=== PATIENT | male | born 1990 | race Caucasian/White ===

== ENCOUNTER 2017-04-19 13:56 | Emergency (ER) | payer OTHER ==
[2017-04-19] MEDS ORDERED: Aspirin Low Dose CHEW TAB* 81 MG PO ONE (13:58)
[2017-04-19 14:43] LABS: Hematocrit 47 % (42-52); Hemoglobin 16.3 g/dl (14.0-18.0); Mean Corpuscular HGB Conc 35 g/dl (31-36); Mean Corpuscular Hemoglobin 31 pg (27-31); Mean Corpuscular Volume 89 fL (80-94); Mean Platelet Volume 8 um3 (7.4-10.4); Red Blood Count 5.22 10^6/ul (4.0-5.4); Red Cell Distribution Width 13 % (10.5-15); White Blood Count 8.6 10^3/ul (3.5-10.8)
--- NOTE | 2017-04-19 14:45 | RAD ---
HISTORY: Chest pain COMPARISONS: October 11, 2010 VIEWS: 1: frontal portable view of the chest at 2:10 PM FINDINGS: LINES AND TUBES: None. CARDIOMEDIASTINAL SILHOUETTE: The cardiomediastinal silhouette is normal for portable technique. PLEURA: The costophrenic angles are sharp. No pleural abnormalities are noted. LUNG PARENCHYMA: The lungs are clear. ABDOMEN: The upper abdomen is clear. There is no subphrenic gas. BONES AND SOFT TISSUES: No bone or soft tissue abnormalities are noted. IMPRESSION: NO ACTIVE CARDIOPULMONARY DISEASE.
[2017-04-19 14:57] LABS: Albumin 4.5 g/dL (3.2-5.2); BUN/Creatinine Ratio 8.9 (8-20); EGFR African American 150.2 (>60); EGFR Non-African American 116.8 (>60); Globulin 3.2 g/dL (2-4); Potassium 3.9 mmol/L (3.5-5.0); Total Bilirubin 0.8 mg/dL (0.2-1.0); Total Protein 7.7 g/dL (6.4-8.9)
--- NOTE | 2017-04-19 15:28 | ED ---
HPI Chest Pain - HPI Summary HPI Summary: Patient presents to the ED with CC of chest pain which began suddenly a few hours prior to arrival over the left anterior chest wall and radiates to the scapula on the ipsilateral side. Hx of arrhythmia a few years ago which had resolved by the time he arrived to the ED. Patient is overweight with history of high blood pressure. He states however he has controlled it with diet and drinking more water. No HTN noted on VS today on arrival. Denies other personal cardiac history. Denies SOB. Denies family history of cardiac issues. Denies traveling, smoking or calf pain. Denies worsening pain with movement and pain is not resolved with rest. The pain began suddenly and currently states the pain is a 2/10 and dull achy. Improved since onset which is states was 8/10. Denies visual changes. Denies KASPER or other symptoms. He takes no medications and states he is otherwise healthy. Denies recent illness or sick contacts. - History of Current Complaint Chief Complaint: EDChestPainROMI Time Seen by Provider: 04/19/17 13:58 Hx Obtained From: Patient Timing: Constant Initial Severity: Mild Current Severity: Mild Pain Intensity: 4 Pain Scale Used: 0-10 Numeric Chest Pain Location: Left Anterior Chest Pain Radiates: Yes Chest Pain Radiates To:: Back, Shoulder Character: Dull/Aching Aggravating Factor(s): Nothing Alleviating Factor(s): Nothing Associated Signs and Symptoms: Positive: Negative - Risk Factors Pulmonary Embolism Risk Factors: Negative TAD Risk Factors: Negative - Allergy/Home Medications Allergies/Adverse Reactions: Allergies Allergy/AdvReac Type Severity Reaction Status Date / Time Sulfamethoxazole Allergy Rash Verified 04/21/15 18:11 w/Trimethoprim [From Bactrim] PMH/Surg Hx/FS Hx/Imm Hx Previously Healthy: Yes Cardiovascular History: Reports: Hx Hypertension - Surgical History Surgery Procedure, Year, and Place: tonsillectomy Infectious Disease History: No Infectious Disease History: Denies: Traveled Outside the [place] in Last 30 Days - Social History Occupation: Employed Full-time Lives: With Family Alcohol Use: Rare Hx Substance Use: No Substance Use Type: Reports: None Hx Tobacco Use: Yes Smoking Status (MU): Former Smoker Type: Cigarettes, Smokeless Tobacco Have You Smoked in the Last Year: Yes Review of Systems Constitutional: Negative Negative: Fever, Chills, Fatigue Eyes: Negative Positive: Chest Pain. Negative: Palpitations Negative: Shortness Of Breath, Cough Negative: Abdominal Pain, Vomiting, Diarrhea, Nausea Genitourinary: Negative Positive: no symptoms reported, see HPI Musculoskeletal: Negative Neurological: Negative All Other Systems Reviewed And Are Negative: Yes Physical Exam Triage Information Reviewed: Yes Vital Signs On Initial Exam: Initial Vitals Temp Pulse Resp BP Pulse Ox 98.7 F 82 16 141/68 98 04/19/17 14:17 04/19/17 14:17 04/19/17 14:17 04/19/17 14:17 04/19/17 14:17 Vital Signs Reviewed: Yes Appearance: Positive: Well-Appearing, Well-Nourished Skin: Positive: Skin Color Reflects Adequate Perfusion Head/Face: Positive: Normal Head/Face Inspection Eyes: Positive: EOMI, PAYAL, Conjunctiva Clear Neck: Positive: Supple, Nontender, No Lymphadenopathy Respiratory/Lung Sounds: Positive: Clear to Auscultation, Breath Sounds Present Cardiovascular: Positive: Normal, RRR, Pulses are Symmetrical in both Upper and Lower Extremities Musculoskeletal: Positive: Normal, Strength/ROM Intact Neurological: Positive: Speech Normal Psychiatric: Positive: Normal, Affect/Mood Appropriate Diagnostics - Vital Signs Vital Signs Temp Pulse Resp BP Pulse Ox 04/19/17 14:36 97 04/19/17 14:30 75 20 139/62 97 04/19/17 14:28 77 15 135/47 98 04/19/17 14:18 77 95 04/19/17 14:17 98.7 F 82 16 141/68 98 - Laboratory Lab Results: Lab Results 04/19/17 04/19/17 04/19/17 Range/Units 14:32 14:32 14:32 WBC 8.6 (3.5-10.8) 10^3/ul RBC 5.22 (4.0-5.4) 10^6/ul Hgb 16.3 (14.0-18.0) g/dl Hct 47 (42-52) % MCV 89 (80-94) fL MCH 31 (27-31) pg MCHC 35 (31-36) g/dl RDW 13 (10.5-15) % Plt Count 213 (150-450) 10^3/ul MPV 8 (7.4-10.4) um3 Neut % (Auto) 62.7 (38-83) % Lymph % (Auto) 28.1 (25-47) % [place] % (Auto) 7.3 (1-9) % Eos % (Auto) 1.4 (0-6) % Baso % (Auto) 0.5 (0-2) % Absolute Neuts (auto) 5.4 (1.5-7.7) 10^3/ul Absolute Lymphs (auto) 2.4 (1.0-4.8) 10^3/ul Absolute Monos (auto) 0.6 (0-0.8) 10^3/ul Absolute Eos (auto) 0.1 (0-0.6) 10^3/ul Absolute Basos (auto) 0 (0-0.2) 10^3/ul Absolute Nucleated RBC 0.01 10^3/ul Nucleated RBC % 0.1 Sodium 136 (133-145) mmol/L Potassium 3.9 (3.5-5.0) mmol/L Chloride 103 (101-111) mmol/L Carbon Dioxide 25 (22-32) mmol/L Anion Gap 8 (2-11) mmol/L BUN 7 (6-24) mg/dL Creatinine 0.79 (0.67-1.17) mg/dL Est GFR ( Amer) 150.2 (>60) Est GFR (Non-Af Amer) 116.8 (>60) BUN/Creatinine Ratio 8.9 (8-20) Glucose 97 (70-100) mg/dL Lactic Acid 0.9 (0.5-2.0) mmol/L Calcium 10.0 (8.6-10.3) mg/dL Total Bilirubin 0.80 (0.2-1.0) mg/dL AST 35 (13-39) U/L ALT 44 (7-52) U/L Alkaline Phosphatase 67 (34-104) U/L Troponin I 0.00 (<0.04) ng/mL Total Protein 7.7 (6.4-8.9) g/dL Albumin 4.5 (3.2-5.2) g/dL Globulin 3.2 (2-4) g/dL Albumin/Globulin Ratio 1.4 (1-3) Result Diagrams: 04/19/17 14:32 04/19/17 14:32 Lab Statement: Any lab studies that have been ordered have been reviewed, and results considered in the medical decision making process. Chest Pain Course/Dx - Course Course Of Treatment: Patient evaluated for acute onset left anterior chest pain while at rest at work 2 hours prior to arrival. EKG shows normal sinus rhythm. No changes since previous EKG. Chest xray shows no acute findings. Troponin obtained and 0.00. All other labs normal. Pain has since resolved and patient is in NAD and resting comfortably. No family or personal history of cardiac issues. Denies other symptoms or concerns. All information discussed with patient and he requests discharge. Treatment options explained to patient. Patient understands the plan, voices no concerns at this time and understands the return precatuions given to them if any symptoms become worse. They are OK for discharge at this time. VS stable on discharge. - Chest Pain Differential Diagnosis/HQI/PQRI: Chest Wall - Diagnoses Provider Diagnoses: Chest wall pain Discharge - Discharge Plan Condition: Stable Disposition: HOME Patient Education Materials: Chest Wall Pain (ED), Chest Pain (ED) Referrals: JASON Cid [Primary Care Provider] - Additional Instructions: Please follow up with PCP next week As discussed, all tests and labs today were normal I encourage you to take ibuprofen 600mg three times daily for inflammatory pain If any pain changes or differs, you need to return to the ED.
[2017-04-19 16:54] VITALS: BP 119/46
== END 2017-04-19 16:56 | disposition home or self-care (01) ==
LOC: ED 13:56
DX: R07.89 Other chest pain (principal); Z87.891 Personal history of nicotine dependence
CPT/HCPCS: 36415; 71010; 80053; 83605; 84484; 85025; 93005; 99283

== ENCOUNTER → 2018-03-29 21:10 | Emergency (ER) | payer OTHER ==
[~2018-03-29 21:10] MED LIST: Aspirin 81 mg CHEW TAB* 81 MG TAB.CHEW PO ONE
--- NOTE | 2018-03-29 22:11 | ED ---
HPI Chest Pain - HPI Summary HPI Summary: This pt is a 28 y/o male presenting [facility] c/o intermittent chest pain since 2 days ago. Pt describes mid sternal chest pain radiating to his neck and left shoulder. He states his pain comes on when he sits down in his truck. Pt notes his chest pain mostly resolved with movement. Denies SOB, nausea, vomiting, edema associated with his chest pain. Currently he denies any chest pain. Denies any PMHx. Denies tobacco use. - History of Current Complaint Chief Complaint: EDChestPainROMI Time Seen by Provider: 03/29/18 21:43 Hx Obtained From: Patient Onset/Duration: Started Days Ago, Resolved Timing: Intermittent, Lasting Days Current Severity: None Pain Intensity: 0 Pain Scale Used: 0-10 Numeric Chest Pain Location: Mid Sternal Chest Pain Radiates: Yes Chest Pain Radiates To:: Shoulder - left, Neck Aggravating Factor(s): Rest Alleviating Factor(s): Other: - movement Associated Signs and Symptoms: Positive: Chest Pain. Negative: Shortness of Breath, Fever, Chills, Nausea, Vomiting, Edema - Allergy/Home Medications Allergies/Adverse Reactions: Allergies Allergy/AdvReac Type Severity Reaction Status Date / Time sulfamethoxazole AdvReac Rash Verified 03/29/18 21:18 [From Bactrim] trimethoprim [From Bactrim] AdvReac Rash Verified 03/29/18 21:18 PMH/Surg Hx/FS Hx/Imm Hx Endocrine/Hematology History: Denies: Hx Diabetes Cardiovascular History: Reports: Hx Hypertension Neurological History: Denies: Hx Seizures - Surgical History Surgery Procedure, Year, and Place: tonsillectomy Infectious Disease History: No Infectious Disease History: Denies: Traveled Outside the [place] in Last 30 Days - Family History Known Family History: Positive: Hypertension, Diabetes - Social History Alcohol Use: Rare Hx Substance Use: No Substance Use Type: Reports: None Hx Tobacco Use: Yes Smoking Status (MU): Former Smoker Type: Cigarettes, Smokeless Tobacco Have You Smoked in the Last Year: Yes Review of Systems Negative: Fever, Chills Positive: Chest Pain Negative: Shortness Of Breath Negative: Vomiting, Nausea Negative: Edema All Other Systems Reviewed And Are Negative: Yes Physical Exam - Summary Physical Exam Summary: VITAL SIGNS: Reviewed. GENERAL: Patient is a well-developed and morbidly obese male who is lying comfortable in the stretcher. Patient is not in any acute respiratory distress. HEAD AND FACE: No signs of trauma. No ecchymosis, hematomas or skull depressions. No sinus tenderness. EYES: PERRLA, EOMI x 2, No injected conjunctiva, no nystagmus. EARS: Hearing grossly intact. Ear canals and tympanic membranes are within normal limits. MOUTH: Oropharynx within normal limits. NECK: Supple, trachea is midline, no adenopathy, no JVD, no carotid bruit, no c- spine tenderness, neck with full ROM. CHEST: Symmetric, no tenderness at palpation LUNGS: Clear to auscultation bilaterally. No wheezing or crackles. CVS: Regular rate and rhythm, S1 and S2 present, no murmurs or gallops appreciated. ABDOMEN: Soft, non-tender. No signs of distention. No rebound no guarding, and no masses palpated. Bowel sounds are normal. EXTREMITIES: FROM in all major joints, no edema, no cyanosis or clubbing. NEURO: Alert and oriented x 3. No acute neurological deficits. Speech is normal and follows commands. SKIN: Dry and warm Triage Information Reviewed: Yes Vital Signs On Initial Exam: Initial Vitals Temp Pulse Resp BP Pulse Ox 97.7 F 74 20 156/78 95 03/29/18 21:13 03/29/18 21:13 03/29/18 21:13 03/29/18 21:13 03/29/18 21:13 Vital Signs Reviewed: Yes Diagnostics - Vital Signs Vital Signs Temp Pulse Resp BP Pulse Ox 03/29/18 21:13 97.7 F 74 20 156/78 95 - Laboratory Result Diagrams: 03/29/18 22:43 03/29/18 22:44 Lab Statement: Any lab studies that have been ordered have been reviewed, and results considered in the medical decision making process. - Radiology chest XR Radiology Interpretation Completed By: ED Physician Summary of Radiographic Findings: no acute process. Pending official radiology report. - EKG 22:08 Cardiac Rate: NL - at 69 bpm EKG Rhythm: Sinus Rhythm Summary of EKG Findings: Normal axis. Normal interval. No ischemic changes Chest Pain Course/Dx - Course Assessment/Plan: Pt is a 28 y/o male who presents to the ED with intermittent chest pain since 2 days ago. Pt describes mid sternal chest pain radiating to his neck and left shoulder. He states his pain comes on when he sits down in his truck. Pt notes his chest pain mostly resolved with movement. Denies SOB, nausea, vomiting, edema associated with his chest pain. Currently he denies any chest pain. Pt has been having chest pain since Monday, 2 days ago. Labs show troponin is 0. EKG shows normal sinus rhythm at 69 bpm. His pain is most likely noncardiac, however we recommend a stress test as an outpatient. Pt will be discharged home with follow up from PCP for an outpatient stress test. Pt was instructed to return to the ED for any new or worsening symptoms. - Diagnoses Provider Diagnoses: Chest pain Discharge - Sign-Out/Discharge Documenting (check all that apply): Patient Departure - Discharge home - Discharge Plan Condition: Stable Disposition: HOME Patient Education Materials: Chest Pain (ED) Referrals: [facility] [Outside] [facility] [Outside] Additional Instructions: We recommend an outpatient stress test. Please follow up with your primary care provider in 1-2 days. If you don't have one follow up with [facility]. RETURN TO EMERGENCY DEPARTMENT FOR ANY NEW OR WORSENING SYMPTOMS. - Attestation Statements Document Initiated by Scribe: Yes Documenting Scribe: Prema Holly Provider For Whom Scribe is Documenting (Include Credential): Dayton Driver MD Scribe Attestation: Prema Snyder, scribed for Dayton Driver MD on 03/29/18 at [id number].
[2018-03-29 22:50] LABS: ABS Basophils 0.1 10^3/ul (0-0.2); ABS Eosinophils 0.1 10^3/ul (0-0.6); ABS Lymphocytes 4.1 10^3/ul (1.0-4.8); ABS Monocytes 0.8 10^3/ul (0-0.8); ABS Neutrophils 6.1 10^3/ul (1.5-7.7); ABS Nucleated RBC 0 10^3/ul; Eosinophil % 0.8 % (0-6); Hematocrit 46 % (42-52); Hemoglobin 15.7 g/dl (14.0-18.0); Lymphocyte % 37.1 % (25-47); Mean Corpuscular HGB Conc 34 g/dl (31-36); Mean Corpuscular Hemoglobin 31 pg (27-31); Mean Corpuscular Volume 91 fL (80-94); Mean Platelet Volume 7.8 fL (7.4-10.4); Nucleated Red Blood Cells % 0.1; Platelet Count 214 10^3/ul (150-450); Red Blood Count 5.07 10^6/ul (4.00-5.40); Red Cell Distribution Width 13 % (10.5-15); White Blood Count 11.1 10^3/ul (3.5-10.8)
[2018-03-29 22:59] LABS: INR 1.01 (0.77-1.02)
[2018-03-29 23:07] LABS: EGFR Non-African American 119.4 (>60)
[2018-03-29 23:32] VITALS: BP 114/98
== END | disposition home or self-care (01) ==
LOC: ED 21:10
DX: R07.89 Other chest pain (principal); Z88.2 Allergy status to sulfonamides; Z87.891 Personal history of nicotine dependence
CPT/HCPCS: 36415; 71045; 80053; 83605; 83735; 83880; 84484; 85025; 85610; 85730; 93005; 99283; A9270-GY

== ENCOUNTER 2019-01-27 10:02 | Emergency (ER) | payer OTHER ==
[2019-01-27 10:30] VITALS: BP 135/77
--- NOTE | 2019-01-27 10:59 | UC ---
Throat Pain/Nasal Donald HPI - HPI Summary HPI Summary: has had sinus congestion for 2 months, over past 2 weeks has worsened and now is blowing out green nasal drainage and feeling facial pressure. worse in am, has tried OTC sinus meds w/o relief. - History of Current Complaint Chief Complaint: UCRespiratory Stated Complaint: CONGESTED Time Seen by Provider: 01/27/19 10:32 Hx Obtained From: Patient Onset/Duration: Gradual Onset Pain Intensity: 0 Associated Signs & Symptoms: Positive: Sinus Discomfort, Nasal Discharge - Allergies/Home Medications Allergies/Adverse Reactions: Allergies Allergy/AdvReac Type Severity Reaction Status Date / Time sulfamethoxazole AdvReac Rash Verified 01/27/19 10:30 [From Bactrim] trimethoprim [From Bactrim] AdvReac Rash Verified 01/27/19 10:30 PMH/Surg Hx/FS Hx/Imm Hx Previously Healthy: Yes - Surgical History Surgical History: Yes Surgery Procedure, Year, and Place: tonsillectomy - Family History Known Family History: Positive: Hypertension, Diabetes - Social History Occupation: Employed Full-time Lives: With Family Alcohol Use: Rare Substance Use Type: None Smoking Status (MU): Former Smoker Type: Cigarettes, eCigarettes Have You Smoked in the Last Year: Yes When Did the Patient Quit Smoking/Using Tobacco: 05/11/13 Cessation Counseling: Patient Advised to Stop - Immunization History Most Recent Influenza Vaccination: none Review of Systems All Other Systems Reviewed And Are Negative: Yes Constitutional: Positive: Negative Skin: Positive: Negative ENT: Positive: Nasal Discharge, Sinus Congestion, Sinus Pain/Tenderness. Negative: Sore Throat, Ear Ache Respiratory: Positive: Negative. Negative: Cough Cardiovascular: Positive: Negative Neurological: Positive: Negative. Negative: Headache Psychological: Positive: Negative Is Patient Immunocompromised?: No Physical Exam Triage Information Reviewed: Yes Appearance: Well-Appearing, No Pain Distress, Obese Vital Signs: Initial Vital Signs Temp 97.6 F 01/27/19 10:26 Pulse 81 01/27/19 10:26 Resp 16 01/27/19 10:26 BP 135/77 01/27/19 10:26 Pulse Ox 98 01/27/19 10:26 Vital Signs Reviewed: Yes Eyes: Positive: Conjunctiva Clear ENT: Positive: Nasal congestion, Nasal drainage, Sinus tenderness - maxillary Neck exam: Normal Neck: Positive: Supple, Nontender, No Lymphadenopathy Respiratory Exam: Normal Respiratory: Positive: Lungs clear Cardiovascular Exam: Normal Cardiovascular: Positive: RRR Musculoskeletal Exam: Normal Neurological Exam: Normal Psychological Exam: Normal Skin Exam: Normal Throat Pain/Nasal Course/Dx - Differential Dx/Diagnosis Differential Diagnosis/HQI/PQRI: Sinusitis, URI Provider Diagnosis: Sinusitis Discharge ED - Sign-Out/Discharge Documenting (check all that apply): Patient Departure All imaging exams completed and their final reports reviewed: No Studies - Discharge Plan Condition: Stable Disposition: HOME Prescriptions: Amoxicillin/Clavulanate TAB* [Augmentin TAB 875*] 875 mg PO BID #20 tab Patient Education Materials: Sinusitis (ED) Referrals: No Primary Care Phys,NOPCP [Primary Care Provider] - Additional Instructions: drink plenty of fluids start antibiotic and take as directed use ibuprofen 600mg every 6 hours as needed for pain try sudafed from behind the counter (ask the pharmacist) return if no better 7-10 days - Billing Disposition and Condition Condition: STABLE Disposition: Home
== END 2019-01-27 11:07 | disposition home or self-care (01) ==
LOC: UCEAST 10:02
DX: J32.9 Chronic sinusitis, unspecified (principal); Z87.891 Personal history of nicotine dependence; Z88.2 Allergy status to sulfonamides
CPT/HCPCS: 99212; G0463

== ENCOUNTER 2019-04-20 12:34 | Emergency (ER) | payer OTHER ==
[2019-04-20 15:10] LABS: ABS Basophils 0.1 10^3/ul (0-0.2); ABS Eosinophils 0.2 10^3/ul (0-0.6); ABS Lymphocytes 3.3 10^3/ul (1.0-4.8); ABS Monocytes 0.4 10^3/ul (0-0.8); ABS Neutrophils 4.5 10^3/ul (1.5-7.7); Eosinophil % 2.7 %; Hematocrit 47 % (42-52); Hemoglobin 16.6 g/dL (14.0-18.0); Lymphocyte % 38.9 %; Mean Corpuscular HGB Conc 35 g/dL (31-36); Mean Corpuscular Hemoglobin 31 pg (27-31); Mean Corpuscular Volume 88 fL (80-94); Platelet Count 223 10^3/uL (150-450); Red Blood Count 5.32 10^6 /uL (4.18-5.48); Red Cell Distribution Width 13 % (10-15); White Blood Count 8.5 10^3/uL (3.5-10.8)
[2019-04-20 15:26] LABS: Albumin 4.4 g/dL (3.2-5.2); Albumin/Globulin Ratio 1.2 (1-3); BUN/Creatinine Ratio 14.7 (8-20); Calcium 10.1 mg/dL (8.6-10.3); EGFR Non-African American 122.3 (>60); Globulin 3.7 g/dL (2-4); Magnesium 2.1 mg/dL (1.9-2.7); Potassium 4.2 mmol/L (3.5-5.0); Total Bilirubin 0.6 mg/dL (0.2-1.0); Total Protein 8.1 g/dL (6.4-8.9)
[2019-04-20 15:54] LABS: TSH (Thyroid Stimulating Horm) 2.46 mcIU/mL (0.34-5.60)
--- NOTE | 2019-04-20 16:10 | ED ---
Palpitations / Dysrhythmia - HPI Summary HPI Summary: Patient is a 29-year-old male who presents emergency department for palpitations. He states he has been noting palpitations intermittently over the last several weeks. Patient states he usually feels one palpitation a day the last night palpitations increased sleep presents for evaluation. Patient notes history of hypertension but is currently not taking her blood pressure medication because his blood pressure has been normal and his family doctor. Patient notes he feels his heart is "skipping a beat." Not brought on by activity. Patient denies associated symptoms of syncope, chest pain, shortness breath, diaphoresis, vomiting. No ongoing sinus congestion for which she is take Augmentin for. Patient denies caffeine use, smoking, drug use, over-the- counter supplements. Symptoms are moderate in severity. No current modifying factors. - History of Current Complaint Chief Complaint: EDDysrhythmPalp Time Seen by Provider: 04/20/19 15:42 Hx Obtained From: Patient - Allergy/Home Medications Allergies/Adverse Reactions: Allergies Allergy/AdvReac Type Severity Reaction Status Date / Time sulfamethoxazole AdvReac Rash Verified 04/20/19 12:37 [From Bactrim] trimethoprim [From Bactrim] AdvReac Rash Verified 04/20/19 12:37 Home Medications: Home Medications NK [No Home Medications Reported] 04/20/19 [History Confirmed 04/20/19] PMH/Surg Hx/FS Hx/Imm Hx Previously Healthy: Yes Endocrine/Hematology History: Denies: Hx Diabetes Cardiovascular History: Reports: Hx Hypertension Neurological History: Denies: Hx Seizures - Surgical History Surgery Procedure, Year, and Place: tonsillectomy Infectious Disease History: No Infectious Disease History: Denies: Traveled Outside the [place] in Last 30 Days - Family History Known Family History: Positive: Hypertension, Diabetes, Non-Contributory - Social History Occupation: Employed Full-time Lives: With Family Alcohol Use: None Hx Substance Use: No Substance Use Type: Reports: None Hx Tobacco Use: Yes Smoking Status (MU): Never Smoked Tobacco Type: Cigarettes, eCigarettes Have You Smoked in the Last Year: Yes Review of Systems Constitutional: Negative Negative: Fever Eyes: Negative Positive: Nasal Discharge Positive: Palpitations. Negative: Chest Pain Respiratory: Negative Negative: Shortness Of Breath, Cough Gastrointestinal: Negative Negative: Abdominal Pain, Vomiting, Diarrhea Genitourinary: Negative Neurological: Negative All Other Systems Reviewed And Are Negative: Yes Physical Exam Triage Information Reviewed: Yes Vital Signs On Initial Exam: Initial Vitals Temp Pulse Resp BP Pulse Ox 98 F 82 16 195/110 98 04/20/19 12:35 04/20/19 12:35 04/20/19 12:35 04/20/19 12:35 04/20/19 12:35 Vital Signs Reviewed: Yes Appearance: Positive: Well-Appearing - Patient sitting up in bed in no acute distress. Significant other present. Skin: Positive: Warm, Dry Head/Face: Positive: Normal Head/Face Inspection Eyes: Positive: Normal, EOMI, PAYAL, Conjunctiva Clear ENT: Positive: Pharynx normal, TMs normal Neck: Positive: Supple Respiratory/Lung Sounds: Positive: Clear to Auscultation, Breath Sounds Present. Negative: Rales, Rhonchi, Wheezes Cardiovascular: Positive: Normal, RRR. Negative: Murmur Musculoskeletal: Positive: Normal, Strength/ROM Intact Neurological: Positive: Normal, CN Intact II-III Psychiatric: Positive: Affect/Mood Appropriate Procedures - Sedation Patient Received Moderate/Deep Sedation with Procedure: No Diagnostics - Vital Signs Vital Signs Temp Pulse Resp BP Pulse Ox 04/20/19 14:27 98.4 F 72 16 134/84 96 04/20/19 12:35 98 F 82 16 195/110 98 - Laboratory Lab Results: Lab Results 04/20/19 04/20/19 04/20/19 Range/Units 14:59 14:59 14:59 WBC 8.5 (3.5-10.8) 10^3/uL RBC 5.32 (4.18-5.48) 10^6 /uL Hgb 16.6 (14.0-18.0) g/dL Hct 47 (42-52) % MCV 88 (80-94) fL MCH 31 (27-31) pg MCHC 35 (31-36) g/dL RDW 13 (10-15) % Plt Count 223 (150-450) 10^3/uL MPV 8.0 (7.4-10.4) fL Neut % (Auto) 52.8 % Lymph % (Auto) 38.9 % [place] % (Auto) 4.9 % Eos % (Auto) 2.7 % Baso % (Auto) 0.7 % Absolute Neuts (auto) 4.5 (1.5-7.7) 10^3/ul Absolute Lymphs (auto) 3.3 (1.0-4.8) 10^3/ul Absolute Monos (auto) 0.4 (0-0.8) 10^3/ul Absolute Eos (auto) 0.2 (0-0.6) 10^3/ul Absolute Basos (auto) 0.1 (0-0.2) 10^3/ul Absolute Nucleated RBC 0.0 10^3/ul Nucleated RBC % 0.0 Sodium 138 (135-145) mmol/L Potassium 4.2 (3.5-5.0) mmol/L Chloride 102 (101-111) mmol/L Carbon Dioxide 27 (22-32) mmol/L Anion Gap 9 (2-11) mmol/L BUN 11 (6-24) mg/dL Creatinine 0.75 (0.67-1.17) mg/dL Est GFR ( Amer) 148.0 (>60) Est GFR (Non-Af Amer) 122.3 (>60) BUN/Creatinine Ratio 14.7 (8-20) Glucose 92 (70-100) mg/dL Lactic Acid 1.2 (0.5-2.0) mmol/L Calcium 10.1 (8.6-10.3) mg/dL Magnesium 2.1 (1.9-2.7) mg/dL Total Bilirubin 0.60 (0.2-1.0) mg/dL AST 36 (13-39) U/L ALT 45 (7-52) U/L Alkaline Phosphatase 67 (34-104) U/L Troponin I 0.00 (<0.03) ng/mL Total Protein 8.1 (6.4-8.9) g/dL Albumin 4.4 (3.2-5.2) g/dL Globulin 3.7 (2-4) g/dL Albumin/Globulin Ratio 1.2 (1-3) TSH 2.46 (0.34-5.60) mcIU/mL Result Diagrams: 04/20/19 14:59 04/20/19 14:59 Lab Statement: Any lab studies that have been ordered have been reviewed, and results considered in the medical decision making process. Course/Dx - Course Course Of Treatment: Patient presenting with intermittent palpitations. He is afebrile well-appearing. Initial blood pressure elevated in triage repeat normal. Blood work drawn and she has is unremarkable including normal TSH. ECG done at 1239 shows a sinus rhythm of 78bpm, normal axis, no STEMI, PAC, similar to prior tracing. Chest x-ray negative for acute findings per radiology. Suspect patient septation secondary to PACs. Patiently currently does not have a family doctor. [facility] for a follow-up appointment on Monday. Recommend outpatient Holter monitor for further evaluation. Patient giving ordered and signs return to the ER. Patient understands and agrees with plan. - Diagnoses Provider Diagnoses: Palpitations Discharge ED - Sign-Out/Discharge Documenting (check all that apply): Patient Departure - Discharge Plan Condition: Good Disposition: HOME Patient Education Materials: Heart Palpitations (ED), Premature Atrial Contractions (ED) Referrals: [facility] [Outside] Additional Instructions: Call the [facility] on Monday to schedule a follow up appointment as soon as possible Will need to get set up for outpatient holter monitor for further evaluation of palpitations Return to ER for chest pain, passing out, shortness or breath or if concerned - Billing Disposition and Condition Condition: GOOD Disposition: Home
[2019-04-20 16:11] VITALS: BP 169/101
== END 2019-04-20 16:14 | disposition home or self-care (01) ==
LOC: ED 12:34
DX: R00.2 Palpitations (principal); I10 Essential (primary) hypertension; F17.210 Nicotine dependence, cigarettes, uncomplicated; Z88.1 Allergy status to other antibiotic agents; Z88.2 Allergy status to sulfonamides
CPT/HCPCS: 36415; 71045; 80053; 83605; 83735; 84443; 84484; 85025; 93005; 99283

== ENCOUNTER 2019-05-22 10:06 | Emergency (ER) | payer OTHER ==
--- OUTSIDE RECORDS SUMMARY | 2019-05-22 10:14 | XMS REPORT | Continuity of Care Document ---
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 Onset: 2018 Note: T12-L1 Social History Type Date Description Comments Sex Unknown ETOH Use Occasionally consumes alcohol Tobacco Use Start: Unknown End: Patient is a former 5 pk yr now chews Unknown smoker tobacco X 10 yrs Recreational Drug Use Current Drug User Smoking Status Reviewed: 04/25/19 Patient is a former 5 pk yr now chews smoker tobacco X 10 yrs Exercise Type/Frequency Exercises regularly walks Allergies, Adverse Reactions, Alerts Active Allergies Reaction Severity Comments Date Sulfa Antibiotics 12/18/2013 Bactrim 12/18/2013 Medications Active Medications SIG Qnty Indications Ordering Provider Date Metoprolol Succinate 1 by mouth 30tabs I10 Iram Espinoza, 04/25/2019 ER every day M.D. 25mg Tablets ER 24HR History Medications No Active Medications Unknown 04/25/2019 - 04/25/2019 Immunizations CPT Code Status Date Vaccine Lot # [id number] Refused 04/25/2019 Influenza Virus Vaccine, Quadrivalent, Split, Preservative Free Vital Signs Date Vital Result Comment 04/25/2019 9:20am Height 69.25 inches 5'9.25" Weight 396.00 lb Heart Rate 80 /min BP Systolic Sitting 142 mmHg BP Diastolic Sitting 78 mmHg O2 % BldC Oximetry 95 % BMI (Body Mass Index) 58.1 kg/m2 12/18/2013 11:06am Height 69.25 inches 5'9.25" Weight 373.75 lb Heart Rate 82 /min BP Systolic Sitting 140 mmHg BP Diastolic Sitting 80 mmHg BMI (Body Mass Index) 54.8 kg/m2 Results Description No Information Available Procedures Description No Information Available Medical Devices Description No Information Available Encounters Description No Information Available Assessments Date Code Description Provider 04/25/2019 R00.2 Palpitations Iram Espinoza M.D. 04/25/2019 I10 Essential (primary) hypertension Iram Espinoza M.D. 04/25/2019 E66.01 Morbid (severe) obesity due to excess calories Iram Espinoza M.D. 04/25/2019 G47.30 Sleep apnea, unspecified Iram Espinoza M.D. 04/25/2019 M51.36 Other intervertebral disc degeneration, lumbar Iram Espinoza M.D. region Plan of Treatment Future Appointment(s):05/02/2019 10:00 am - Nurse Visit A at [facility] Internal Medicine - [facility]04/25/2019 - Iram Espinoza M.D.R00.2 PalpitationsReferral: Kian Pisano DO, FACC, Cardiovsclr IumtnmpR17 Essential (primary) hypertensionNew Medication:Metoprolol Succinate ER 25 mg - 1 by mouth every dayFollow up:1 week for BP check second week of may with me ,labs and MRI before the visit DEBI from Dr. Kothari66.01 Morbid (severe) obesity due to excess oefmwctxU90.30 Sleep apnea, unspecifiedReferral:[facility], Sleep Disord,Diag/JiddqhK52.36 Other intervertebral disc degeneration, lumbar regionNew Therapy:Physical Therapy Functional Status Description No Information Available Mental Status Description No Information Available Referrals Refer to Reason for Referral Status Appt Date [facility] Sleep [facility] Sent [address] [place] [address] [phone] Kian Pisano DO, FACC Sent [facility] [place] [address] [phone]
--- OUTSIDE RECORDS SUMMARY | 2019-05-22 10:14 | XMS REPORT | Continuity of Care Document ---
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 Kothari66.01 Morbid (severe) obesity due to excess hgfaskkcS87.30 Sleep apnea, unspecifiedReferral:[facility] Sleep [facility], Sleep Disord,Diag/JylchlX38.36 Other intervertebral disc degeneration, lumbar regionNew Therapy:Physical Therapy Functional Status Description No Information Available Mental Status Description No Information Available Referrals Refer to Reason for Referral Status Appt Date [facility] Sent [address] [place] [address] [phone] Kian Pisano DO, FACC Sent [facility] [place] [address] [phone]
--- OUTSIDE RECORDS SUMMARY | 2019-05-22 10:14 | XMS REPORT | Continuity of Care Document ---
:1990 External Reference #:[id number] Author Name Iram Espinoza M.D. (transmitted by agent of provider Rylie Iniguez) Address [address], [place] [address] Care Team Providers Name Role Phone Iram Espinoza MD - Internal Care Team Information Assistant Field Hockey Coach [phone] Medicine Problems Active Problems Provider Date Degeneration [...] CPT Code Status Date Vaccine Lot # [id number] Refused 04/25/2019 Influenza Virus Vaccine, Quadrivalent, Split, [...] 10:00 am - Nurse Visit A at [facility] Internal Medicine - [facility]04/25/2019 - Iram Espinoza M.D.R00.2 PalpitationsReferral: Kian Pisano DO, FACC, Cardiovsclr CgmcmioV11 Essential (primary) hypertensionNew Medication:Metoprolol Succinate ER 25 mg - 1 by mouth every dayFollow up:1 week for BP check second week may with me ,labs and MRI before the visit DEBI from Dr. Kothari66.01 Morbid (severe) obesity due to excess ygcdrupoQ96.30 Sleep apnea, unspecifiedReferral:[facility] Sleep Clinic, Sleep Disord,Diag/EciozxG10.36 Other intervertebral disc degeneration, lumbar regionNew Xrays:MRI Lumbar Spine W/O, Ordered: 04/25/19New Therapy:Physical Therapy Functional Status Description No Information Available Mental Status Description No Information Available Referrals Refer to Reason for Referral Status Appt Date [facility] Sleep Clinic Sent [address] [place] [address] [phone] Kian Pisano DO, FACC Created [facility] [place] [address] [phone]
--- OUTSIDE RECORDS SUMMARY | 2019-05-22 10:14 | XMS REPORT | Continuity of Care Document ---
:1990 External Reference #:[id number] Author Name Kian Pisano, DO FACC (transmitted by agent of provider Nolvia Glover) Address [address] 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 Onset: 2018 Note: T12-L1 Social History Type Date Description Comments Sex Unknown Tobacco Use Start: Unknown Never Smoked Cigarettes Smoking Status Reviewed: 05/21/19 Never Smoked Cigarettes ETOH Use Occasionally consumes alcohol Tobacco Use Start: Unknown End: Patient is a former 5 pk yr now chews Unknown smoker tobacco X 10 yrs Recreational Drug Use Current Drug User Exercise Type/Frequency Exercises regularly walks Allergies, Adverse Reactions, Alerts Active Allergies Reaction Severity Comments Date Sulfa Antibiotics 12/18/2013 Bactrim 12/18/2013 Medications Active Medications SIG Qnty Indications Ordering Provider Date Lisinopril-Hydrochloro 1 by mouth 30tabs I10 Kian Pisano, 05/21/2019 thiazide every day DO FACC 10-12.5mg Tablets History Medications No Active Medications Unknown 05/21/2019 - 05/21/2019 No Active Medications Unknown 04/25/2019 - 04/25/2019 Metoprolol Succinate 1 by mouth 30tabs I10 Iram Espinoza, 04/25/2019 - ER every day MKristie 05/20/2019 25mg Tablets ER 24HR Immunizations CPT Code Status Date Vaccine Lot # [id number] Refused 04/25/2019 Influenza Virus Vaccine, Quadrivalent, Split, Preservative Free Vital Signs Date Vital Result Comment 05/21/2019 11:44am Height 70 inches 5'10" Weight 390.00 lb pt reported Heart Rate 90 /min radial BP Systolic 150 mmHg Rue large cuff BP Diastolic 88 mmHg Rue large cuff BP Systolic Sitting 152 mmHg Lue lg cuff BP Diastolic Sitting 88 mmHg Lue lg cuff BP Systolic Standing 140 mmHg Rue lg cuff BP Diastolic Standing 78 mmHg Rue lg cuff Respiratory Rate 20 /min BMI (Body Mass Index) 56.0 kg/m2 04/25/2019 9:20am Height 69.25 inches 5'9.25" Weight 396.00 lb Heart Rate 80 /min BP Systolic Sitting 142 mmHg BP Diastolic Sitting 78 mmHg O2 % BldC Oximetry 95 % BMI (Body Mass Index) 58.1 kg/m2 Results Description No Information Available Procedures Date Code Description Status 05/21/2019 20359 EKG Tracing & Interpretation Completed Medical Devices Description No Information Available Encounters Description No Information Available Assessments Date Code Description Provider 05/21/2019 R00.2 Palpitations Kian Pisano, DO [facility] 05/21/2019 I49.1 Atrial premature depolarization Kian Pisano, DO [facility] 05/21/2019 I10 Essential (primary) hypertension Kian Pisano, DO [facility] 05/21/2019 E66.8 Other obesity Kian Pisano, DO [facility] 04/25/2019 R00.2 Palpitations Iram Espinoza M.D. 04/25/2019 I10 Essential (primary) hypertension Iram Espinoza M.D. 04/25/2019 E66.01 Morbid (severe) obesity due to excess Iram Espinoza M.D. calories 04/25/2019 G47.30 Sleep apnea, unspecified Iram Espinoza M.D. 04/25/2019 M51.36 Other intervertebral disc degeneration, Iram Espinoza M.D. lumbar region Plan of Treatment Future Appointment(s):06/11/2019 11:00 am - Nurse Visit IC at [facility]06/10/2019 11:30 am - Nurse Visit IC at [facility]2019 3:30 pm - Traveling ECHO 1 at [facility]06/25/2019 11:00 am - Tammy Kerr MD at [facility]04/25/2019 - Iram Espinoza M.D.R00.2 PalpitationsReferral:Kian Pisano DO, FACC, Cardiovsclr EjooqqkH75 Essential (primary) hypertensionNew Medication: Metoprolol Succinate ER 25 mg - 1 by mouth every dayFollow up:1 week for BP check second week of may with me ,labs and MRI before the visit DEBI from Dr. Kothari66.01 Morbid (severe) obesity due to excess betceposZ91.30 Sleep apnea , unspecifiedReferral:[facility] Sleep [facility], Sleep Disord,Diag/NyivoxJ44.36 Other intervertebral disc degeneration, lumbar regionNew Therapy:Physical Therapy Functional Status Description No Information Available Mental Status Description No Information Available Referrals Refer to Reason for Referral Status Appt Date [facility] Sent [address] [place] [address] [phone] [facility] Sleep [facility] apnea/snoring palpitations Sent 06/25/[address] [place] [address] [phone] Kian Pisano DO, FACC Sent 05/21/2019 [address] [place] [address] [phone]
--- OUTSIDE RECORDS SUMMARY | 2019-05-22 10:14 | XMS REPORT | Continuity of Care Document ---
:1990 External Reference #:[id number] Author Name Soraya Segal Care Team Providers Name Role Phone Iram Espinoza MD - Internal Care Team Information Software Support Technician [phone] Medicine Problems Active Problems Provider Date Degeneration [...] CPT Code Status Date Vaccine Lot # [id number] Refused 04/25/2019 Influenza Virus Vaccine, Quadrivalent, Split, [...] 10:00 am - Nurse Visit A at [facility] Internal Medicine - [facility]04/25/2019 - Iram Espinoza M.D.R00.2 PalpitationsReferral: Kian Pisano DO, FACC, Cardiovsclr IbawzdhN54 Essential (primary) hypertensionNew Medication:Metoprolol Succinate ER 25 mg - 1 by mouth every dayFollow up:1 week for BP check second week of may with me ,labs and MRI before the visit DEBI from Dr. Kothari66.01 Morbid (severe) obesity due to excess hyxliijhB38.30 Sleep apnea, unspecifiedReferral:[facility] Sleep Clinic, Sleep Disord,Diag/ScliozQ59.36 Other intervertebral disc degeneration, lumbar regionNew Therapy:Physical Therapy Functional Status Description No Information Available Mental Status Description No Information Available Referrals Refer to Reason for Referral Status Appt Date [facility] Sleep Clinic Sent [address] [place] [address] [phone] Kian Pisano DO, FACC Sent [facility] [place] [address] [phone]
--- OUTSIDE RECORDS SUMMARY | 2019-05-22 10:14 | XMS REPORT | Continuity of Care Document ---
:1990 External Reference #:[id number] Author Name Kian Pisano, DO FACC (transmitted by agent of provider Nolvia Glover) Address [address] 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 Medicine Problems Active Problems Provider Date Degeneration [...] CPT Code Status Date Vaccine Lot # [id number] Refused 04/25/2019 Influenza Virus Vaccine, Quadrivalent, Split, [...] Available Procedures Date Code Description Status 05/21/2019 12162 EKG Tracing & Interpretation Completed Medical Devices Description No Information Available Encounters Description No Information Available Assessments Date Code Description Provider 05/21/2019 R00.2 Palpitations Kian Pisano, DO [facility] 05/21/2019 I49.1 Atrial premature depolarization Kian Pisano, DO [facility] 05/21/2019 I10 Essential (primary) hypertension Kian Pisano, DO [facility] 05/21/2019 E66.8 Other obesity Kain Pisano, DO [facility] 04/25/2019 R00.2 Palpitations Iram Espinoza M.D. 04/25/2019 I10 Essential (primary) hypertension Iram Espinoza M.D. 04/25/2019 E66.01 Morbid (severe) obesity due to excess Iram Espinoza M.D. calories 04/25/2019 G47.30 Sleep apnea, unspecified Iram Espinoza M.D. 04/25/2019 M51.36 Other intervertebral disc degeneration, Iram Espinoza M.D. lumbar region Plan of Treatment Future Appointment(s):06/11/2019 11:00 am - Nurse Visit IC at [facility]06/10/2019 11:30 am - Nurse Visit IC at [facility]2019 3:30 pm - Traveling ECHO 1 at [facility]06/25/2019 11:00 am - Tammy Kerr MD at [facility]04/25/2019 - Iram Espinoza M.D.R00.2 PalpitationsReferral:Kian Pisano DO, FACC, Cardiovsclr QyladmeV65 Essential (primary) hypertensionNew Medication: Metoprolol Succinate ER 25 mg - 1 by mouth every dayFollow up:1 week for BP check second week of may with me ,labs and MRI before the visit DEBI from Dr. Kothari66.01 Morbid (severe) obesity due to excess kmzlaojdZ37.30 Sleep apnea , unspecifiedReferral:[facility] [place] [facility], Sleep Disord,Diag/IvyrayI04.36 Other intervertebral disc degeneration, lumbar regionNew Therapy:Physical Therapy Functional Status Description No Information Available Mental Status Description No Information Available Referrals Refer to Reason for Referral Status Appt Date [facility] Sent [address] [place] [address] [phone] [facility] apnea/snoring palpitations Sent 06/25/[address] [place] [address] [phone] Kian Pisano DO, FACC Sent 05/21/2019 [address] [place] [address] [phone]
[2019-05-22 10:26] VITALS: BP 152/92
--- NOTE | 2019-05-22 11:51 | UC ---
Throat Pain/Nasal Donald HPI - HPI Summary HPI Summary: 29-year-old male who has had head congestion, postnasal drainage and sinus pressure for the past month. He states that 2 months ago he had similar symptoms and was treated with Augmentin which totally cleared the sinus infection. He is a nonsmoker. - History of Current Complaint Chief Complaint: UCGeneralIllness Stated Complaint: SINUS ISSUE Time Seen by Provider: 05/22/19 11:44 Hx Obtained From: Patient Onset/Duration: Gradual Onset Severity: Mild Pain Intensity: 3 Cough: None Associated Signs & Symptoms: Positive: Sinus Discomfort, Nasal Discharge - Green nasal coryza with sinus pressure. - Allergies/Home Medications Allergies/Adverse Reactions: Allergies Allergy/AdvReac Type Severity Reaction Status Date / Time sulfamethoxazole AdvReac Rash Verified 05/22/19 10:26 [From Bactrim] trimethoprim [From Bactrim] AdvReac Rash Verified 05/22/19 10:26 Home Medications: Home Medications Lisinopril/Hydrochlorothiazide [Lisinopril-Hctz 10-12.5 mg Tab] 1 tab PO DAILY 05/22/19 [History Confirmed 05/22/19] PMH/Surg Hx/FS Hx/Imm Hx Previously Healthy: Yes - Surgical History Surgical History: Yes Surgery Procedure, Year, and Place: tonsillectomy - Family History Known Family History: Positive: Hypertension, Diabetes, Non-Contributory - Social History Alcohol Use: None Substance Use Type: None Smoking Status (MU): Never Smoked Tobacco Type: Cigarettes, eCigarettes Have You Smoked in the Last Year: Yes When Did the Patient Quit Smoking/Using Tobacco: 05/11/13 - Immunization History Most Recent Influenza Vaccination: none Review of Systems All Other Systems Reviewed And Are Negative: Yes ENT: Positive: Nasal Discharge, Sinus Congestion - Green nasal coryza, Sinus Pain/Tenderness Is Patient Immunocompromised?: No Physical Exam Triage Information Reviewed: Yes Appearance: Well-Appearing, No Pain Distress, Well-Nourished, Obese Vital Signs: Initial Vital Signs Temp 97.0 F 05/22/19 10:22 Pulse 84 05/22/19 10:22 Resp 20 05/22/19 10:22 BP 152/92 05/22/19 10:22 Pulse Ox 96 05/22/19 10:22 Vital Signs Reviewed: Yes Eyes: Positive: Conjunctiva Clear ENT: Positive: Hearing grossly normal, Pharynx normal - Yellowish postnasal drainage., Nasal congestion, Nasal drainage - Yellowish-green nasal coryza., TMs normal, Sinus tenderness - Tender on the left maxillary sinus., Uvula midline Neck: Positive: Supple, Nontender, No Lymphadenopathy Respiratory: Positive: Lungs clear, Normal breath sounds, No respiratory distress, No accessory muscle use Cardiovascular: Positive: RRR, No Murmur, Pulses Normal, Brisk Capillary Refill Musculoskeletal Exam: Normal Neurological Exam: Normal Psychological Exam: Normal Skin Exam: Normal Throat Pain/Nasal Course/Dx - Course Course Of Treatment: I am going to treat the patient for sinusitis with Augmentin 875 mg by mouth twice a day 10 days. He is to follow-up with primary care provider if no improvement in 5-6 days. - Differential Dx/Diagnosis Provider Diagnosis: Sinusitis Discharge ED - Sign-Out/Discharge Documenting (check all that apply): Patient Departure All imaging exams completed and their final reports reviewed: No Studies - Discharge Plan Condition: Good Disposition: HOME Prescriptions: Amoxicillin/Clavulanate TAB* [Augmentin TAB 875*] 875 mg PO BID 10 Days #20 tab Patient Education Materials: Sinusitis (ED) Referrals: Iram Espinoza MD [Primary Care Provider] - Additional Instructions: Increase fluids, take the Augmentin with food. Definite follow-up with your primary care provider if no improvement in 5-6 days. - Billing Disposition and Condition Condition: GOOD Disposition: Home
== END 2019-05-22 12:10 | disposition home or self-care (01) ==
LOC: UCEAST 10:06
DX: J32.9 Chronic sinusitis, unspecified (principal); Z88.2 Allergy status to sulfonamides
CPT/HCPCS: 99212; G0463